=== PATIENT | male | born 1990 | race Caucasian/White ===

== ENCOUNTER 2024-04-29 17:02 | Emergency (ER) | payer OTHER ==
[2024-04-29 19:35] LABS: Absolute Basophils 0.1 K/uL (0-0.5); Absolute Eosinophils 0.2 K/uL (0-0.5); Absolute Monocytes 0.5 K/uL (0.1-1.3); Absolute Neutrophil 6.5 K/uL (1.8-8.0); Eosinophils % 2.6 % (0-4.4); Hematocrit 26.5 % (39.6-49.0); Hemoglobin 7.9 g/dL (13.6-17.9); Lymphocytes % 12.6 % (15.3-44.8); MCH 17.5 pg (27.0-35.0); MCHC 29.8 g/dL (32.0-36.0); MCV 58.8 fL (80-100); MPV 8.4 fL (7.6-11.3); Monocytes % 5.5 % (3.3-12.3); Neutrophils % 78.3 % (41.7-73.7); Nucleated Red Blood Cells % 0.1 % (0-0); Platelets 434 thou/uL (152-406); RBC Red Blood Cell Count 4.51 M/uL (4.33-5.43); Red Cell Distribution Width 18.5 % (12.1-15.2)
[2024-04-29 19:39] LABS: PT Prothrombin Time 12.3 SECONDS (9.4-12.5); PTT, Activated Partial Thromb 34.1 SECONDS (24.3-36.9); Protime INR 1.1
[2024-04-29 20:00] LABS: ALT/SGPT 19 U/L (16-61); Albumin 3.2 g/dL (3.4-5.0); Albumin/Globulin Ratio 0.7 (1.1-1.8); Alkaline Phosphatase 65 U/L (45-117); Anion Gap 10.6 mEq/L (5.0-15.0); BUN Blood Urea Nitrogen 10 mg/dL (7-18); Bicarbonate 26 mEq/L (21-32); Bilirubin Total 0.3 mg/dL (0.2-1.0); Globulin 4.7 g/dL (2.3-3.5); Glomerular Filtration Rate 107 ml/min (=/>90); Glucose Level 154 mg/dL (74-106); Magnesium 2.3 mg/dL (1.6-2.4); Potassium 3.6 mEq/L (3.5-5.1); Protein, Total 7.9 g/dL (6.4-8.2); Sodium Level 137 mEq/L (136-145)
[2024-04-29 20:02] LABS: AST/SGOT < 10 U/L (15-37); Bilirubin Direct < 0.2 mg/dL (0-0.2); Bilirubin Indirect, Calculated 0.1 mg/dL (0.2-0.8)
[2024-04-29 20:06] LABS: Blood Morphology Comment NOTED (NOT SEEN); Hypochromasia 3+; Microcytosis 3+; Platelet Estimate INCR; White Blood Cell Scan OK (OK)
[2024-04-29 20:15] LABS: Ferritin 1.1 ng/mL (26-388); T3 Free 2.36 pg/mL (2.18-3.98); Transferrin 334 mg/dL (200-360)
--- NOTE | 2024-04-29 22:16 | RAD REPORT ---
EXAMINATION: CT ABDOMEN AND PELVIS WITHOUT AND WITH CONTRAST CLINICAL INDICATION: Anemia. Abdominal pain. TECHNIQUE: CT abdomen and pelvis was performed, before and after the administration of IV contrast Is ovue as per department protocol. Axial, sagittal and coronal reconstructions were obtained. One or more of the following dose reduction techniques were used: Automated exposure control, adjustment of the mA and/or kV according to patient size, and/or iterative reconstruction. Unless otherwise specified, incidental findings do not require dedicated imaging follow-up. [id number].. Evaluation of bow el limited secondary to lack of oral contrast administration IV CONTRAST: 100 mL of Isovue-300 ORAL CONTRAST: No. This limits evaluation of bowel. COMPARISON: None FINDINGS: The liver, spleen, pancreas, adrenals and kidneys unremarkable urogram normal appendix. No evidence of diverticulitis Calcified granuloma left lung Mild bladder distention. Small umbilical hernia IMPRESSION: Mild bladder distention
--- NOTE | 2024-04-29 22:37 | EDPHYS ---
Physician Documentation [facility] Name: Parker Rosas Age: 33 yrs Sex: Male : 1990 Arrival Date: 04/29/2024 Time: 17:02 Bed 4 Private MD: ED Physician Fletcher Luque HPI: 04/29 18:55 This 33 yrs old Male presents to ER via Ambulatory with complaints of Abnormal Lab cp Results. 18:55 Patient is a 33-year-old male who presents to the emergency department after reportedly cp being called by his psychiatrist today and being informed that he had a hemoglobin of 7.9 and that he needed to proceed to the emergency department for transfusion. Patient reports the blood work was routine by his psychiatrist as he is trying to go on his prescribed ADHD medication. Patient denies any abdominal pain, denies any chest pain, denies any blood in his stool or black and tarry stools. Patient has any history of being anemic reports that he does suffer from IBS has never had a colonoscopy or any evaluated for this disorder. Historical: - Allergies: 17:33 Iodine; tm6 17:33 SHELLFISH; tm6 - PMHx: 17:33 Depressive disorder; tm6 - PSHx: 17:33 None; tm6 - Immunization history:: Client reports having NOT received the Covid vaccine. - Infectious Disease History:: Denies. - Social history:: Smoking status: Reported history of juuling and/or vaping. Patient uses alcohol, occasionally. ROS: 19:00 Constitutional: Negative for body aches, chills, fever, poor PO intake, cp 19:00 Eyes: Negative for injury, pain, redness, and discharge, cp 19:00 ENT: Negative for drainage from ear(s), ear pain, sore throat, difficulty swallowing, difficulty handling secretions, 19:00 Cardiovascular: Negative for chest pain, edema, palpitations, 19:00 Respiratory: Negative for cough, shortness of breath, wheezing, 19:00 Abdomen/GI: Negative for abdominal pain, nausea, vomiting, and diarrhea, black/tarry stool, rectal bleeding, 19:00 : Negative for urinary symptoms, 19:00 Neuro: Negative for altered mental status, dizziness, headache, syncope, near syncope, weakness, 19:00 All other systems are negative, Exam: 19:05 Constitutional: The patient appears in no acute distress, alert, awake, cp non-diaphoretic, non-toxic, well developed, well nourished, 19:05 Head/Face: Normocephalic, atraumatic. cp 19:05 Eyes: Periorbital structures: appear normal, Conjunctiva: normal, no exudate, no injection, Sclera: no appreciated abnormality, Lids and lashes: appear normal, bilaterally, 19:05 ENT: External ear(s): are unremarkable, Nose: is normal, Mouth: Lips: moist, Oral mucosa: pink and intact, moist, Posterior pharynx: is normal, airway is patent, no erythema, no exudate, 19:05 Chest/axilla: Inspection: normal, 19:05 Cardiovascular: Rate: normal, Rhythm: regular, 19:05 Respiratory: the patient does not display signs of respiratory distress, Respirations: normal, no use of accessory muscles, no retractions, labored breathing, is not present, Breath sounds: are clear throughout, no decreased breath sounds, no stridor, no wheezing, 19:05 Abdomen/GI: Inspection: abdomen appears normal, Palpation: abdomen is soft and non-tender, in all quadrants, 19:05 Neuro: Orientation: to person, place \T\ time. Mentation: is normal, Motor: moves all fours, strength is normal, 19:43 ECG was reviewed by the Attending Physician. cp Vital Signs: 17:32 BP 154 / 86; Pulse 68; Resp 18; Temp 99.2(O); Pulse Ox 99% on R/A; Weight 92.99 kg; tm6 Height 5 ft. 11 in. ; Pain 0/10; 18:42 BP 128 / 82; Pulse 81; Resp 15; Pulse Ox 99% on R/A; ko1 20:14 BP 122 / 71; Pulse 67; Resp 15; Pulse Ox 100% ; Pain 0/10; dd2 21:20 BP 112 / 68; Pulse 55; Resp 16; Pulse Ox 100% ; Pain 0/10; dd2 22:35 BP 115 / 69; Pulse 58; Resp 16; Pulse Ox 99% ; Pain 0/10; dd2 17:32 Body Mass Index 28.59 (92.99 kg, 180.34 cm) tm6 17:32 Pain Scale: Adult tm6 20:14 Pain Scale: Adult dd2 21:20 Pain Scale: Adult dd2 22:35 Pain Scale: Adult dd2 MDM: 17:39 Patient medically screened. 20:00 Differential diagnosis: GI bleed, chronic anemia, iron deficiency anemia, thalassemia. cp 22:35 Data reviewed: vital signs, nurses notes, lab test result(s), EKG, radiologic studies, cp CT scan, and as a result, I will discharge patient. 22:35 Independent interpretation of the following test(s) in the Emergency Department EKG: cp See my EKG interpretation above. Counseling: I had a detailed discussion with the patient and/or guardian regarding the historical points, exam findings, and any diagnostic results supporting the discharge/admit diagnosis, lab results, radiology results, the need for outpatient follow up, a twisthand, to return to the emergency department if symptoms worsen or persist or if there are any questions or concerns that arise at home. 04/29 18:51 Order name: Basic Metabolic Panel; Complete Time: 20:21 04/29 20:21 Interpretation: Normal except: GLUC 154. 04/29 18:51 Order name: CBC with Diff; Complete Time: 20:21 04/29 20:22 Interpretation: Normal except: HGB 7.9; HCT 26.5; MCV 58.8; MCHC 29.8; MCH 17.5; PLT cp 434; RDW 18.5; DIANA% 78.3; LYM% 12.6. 04/29 18:51 Order name: LFT's; Complete Time: 20:21 04/29 22:32 Interpretation: AST < 10; IBILI, CALC 0.1; ALB 3.2; GLOB 4.7; A/G 0.7; Reviewed. 04/29 18:51 Order name: Magnesium; Complete Time: 20:21 04/29 22:32 Interpretation: Reviewed. 04/29 18:51 Order name: PT-INR; Complete Time: 20:21 04/29 18:51 Order name: Ptt, Activated; Complete Time: 20:21 04/29 18:51 Order name: Ferritin; Complete Time: 20:21 04/29 22:32 Interpretation: Abnormal: DORIAN 1.1. 04/29 18:51 Order name: TIBC; Complete Time: 20:21 04/29 22:32 Interpretation: Normal except: IRON 11.0; IBCT 468; %SAT 2.4. cp 04/29 18:51 Order name: TSH; Complete Time: 20:21 cp 04/29 18:51 Order name: T3 Free; Complete Time: 20:21 cp 04/29 20:06 Order name: CBC Smear Scan; Complete Time: 20:21 EDMS 04/29 20:56 Order name: CT Abd/Pelvis- W/WO Contrast; Complete Time: 22:31 cp 04/29 18:51 Order name: Cardiac monitoring; Complete Time: 19:41 cp 18 18:51 Order name: EKG - Nurse/Tech; Complete Time: 19:41 cp 04/29 18:51 Order name: IV Saline Lock; Complete Time: 19:41 cp 04/29 18:51 Order name: Labs collected and sent; Complete Time: 19:41 cp 04/29 18:51 Order name: O2 Per Protocol; Complete Time: 19:15 cp 04/29 18:51 Order name: O2 Sat Monitoring; Complete Time: 19:15 cp EC:43 Rate is 70 beats/min. Rhythm is regular. NE interval is normal. QRS interval is normal. cp QT interval is normal. T waves are Inverted in lead aVR. Interpreted by me. Reviewed by me. Administered Medications: No medications were administered Disposition Summary: 04/29/24 22:36 Discharge Ordered Notes: Location: Home cp Problem: new cp Symptoms: have improved cp Condition: Stable cp Diagnosis - Iron deficiency anemia, unspecified cp Followup: cp - With: Leonard Lomas MD - When: 2 - 3 days - Reason: Recheck today's complaints Discharge Instructions: - Discharge Summary Sheet cp - Iron Deficiency Anemia, Adult cp - Anemia cp - Iron-Rich Diet cp Forms: - Medication Reconciliation Form cp - Antibiotic Education cp - Prescription Opioid Use cp - Patient Portal Instructions cp - Leadership Thank You Letter cp Prescriptions: - Ferrous Sulfate 325 mg (65 mg Iron) Oral tablet - take 1 tablet ORAL route every 12 hours; 60 tablet; Refills: 0, Product cp Selection Permitted Signatures: Dispatcher [employer] EDMS Fletcher Hall PA PA cp Masterson, Tawney RN RN tm6 Corrections: (The following items were deleted from the chart) 17:34 17:33 PMHx: None; tm6 tm6 20:56 20:56 Abdomen Pelvis W/Wo Con+CT.RAD.BRZ ordered. EDMS EDMS
--- NOTE | 2024-04-29 22:37 | ER ---
Nurse's Notes [facility] Name: Parker Rosas Age: 33 yrs Sex: Male : 1990 Arrival Date: 04/29/2024 Time: 17:02 Bed 4 Private MD: Diagnosis: Iron deficiency anemia, unspecified Presentation: 04/29 17:32 Chief complaint: Patient states: got a call from my doctor today telling me my tm6 hemoglobin is 7.9 and should go to the ER for a blood transfusion. Coronavirus screen: Vaccine status: Patient reports being unvaccinated. Ebola Screen: Patient negative for fever greater than or equal to 101.5 degrees Fahrenheit, and additional compatible Ebola Virus Disease symptoms Patient denies exposure to infectious person. Patient denies travel to an Ebola-affected area in the 21 days before illness onset. No symptoms or risks identified at this time. Initial Sepsis Screen: Does the patient meet any 2 criteria? No. Patient's initial sepsis screen is negative. Does the patient have a suspected source of infection? No. Patient's initial sepsis screen is negative. Risk Assessment: Do you want to hurt yourself or someone else? Patient reports no desire to harm self or others. Onset of symptoms was April 29, 2024. 17:32 Method Of Arrival: Ambulatory tm6 17:32 Acuity: TONO 3 tm6 Triage Assessment: 17:33 General: Appears in no apparent distress. Behavior is calm, cooperative. Pain: Denies tm6 pain. EENT: No signs and/or symptoms were reported regarding the EENT system. Neuro: Level of Consciousness is awake, alert, obeys commands, Oriented to person, place, time, situation. Cardiovascular: Capillary refill < 3 seconds Patient's skin is warm and dry. Respiratory: Airway is patent Respiratory effort is even, unlabored, Respiratory pattern is regular, symmetrical. GI: No signs and/or symptoms were reported involving the gastrointestinal system. Abdomen is flat, non-distended. : No signs and/or symptoms were reported regarding the genitourinary system. Derm: No signs and/or symptoms reported regarding the dermatologic system. Musculoskeletal: No signs and/or symptoms reported regarding the musculoskeletal system. Historical: - Allergies: 17:33 Iodine; tm6 17:33 SHELLFISH; tm6 - PMHx: 17:33 Depressive disorder; tm6 - PSHx: 17:33 None; tm6 - Immunization history:: Client reports having NOT received the Covid vaccine. - Infectious Disease History:: Denies. - Social history:: Smoking status: Reported history of juuling and/or vaping. Patient uses alcohol, occasionally. Screenin:42 [facility] ED Fall Risk Assessment (Adult) History of falling in the last 3 months, ko1 including since admission No falls in past 3 months (0 pts) Confusion or Disorientation No (0 pts) Intoxicated or Sedated No (0 pts) Impaired Gait No (0 pts) Mobility Assist Device Used No (0 pt) Altered Elimination No (0 pt) Score/Fall Risk Level 0 - 2 = Low Risk Oriented to surroundings, Maintained a safe environment, Educated pt \T\ family on fall prevention, incl call for assistance when getting out of bed, Assessed \T\ reinforced patient's understanding of fall precautions, Hourly rounding (assess needs \T\ fall precautionary measures) done. Abuse screen: Denies threats or abuse. Denies injuries from another. Nutritional screening: No deficits noted. Tuberculosis screening: No symptoms or risk factors identified. Assessment: 18:42 General: Appears in no apparent distress. Behavior is calm, cooperative, appropriate ko1 for age. Pain: Denies pain. Neuro: No deficits noted. Cardiovascular: No deficits noted. Respiratory: No deficits noted. GI: No deficits noted. : No deficits noted. EENT: No deficits noted. Derm: No deficits noted. Musculoskeletal: No deficits noted. 19:41 Reassessment: No changes from previously documented assessment. Patient denies pain at dd2 this time. Vital Signs: 17:32 BP 154 / 86; Pulse 68; Resp 18; Temp 99.2(O); Pulse Ox 99% on R/A; Weight 92.99 kg; tm6 Height 5 ft. 11 in. ; Pain 0/10; 18:42 BP 128 / 82; Pulse 81; Resp 15; Pulse Ox 99% on R/A; ko1 20:14 BP 122 / 71; Pulse 67; Resp 15; Pulse Ox 100% ; Pain 0/10; dd2 21:20 BP 112 / 68; Pulse 55; Resp 16; Pulse Ox 100% ; Pain 0/10; dd2 22:35 BP 115 / 69; Pulse 58; Resp 16; Pulse Ox 99% ; Pain 0/10; dd2 17:32 Body Mass Index 28.59 (92.99 kg, 180.34 cm) tm6 17:32 Pain Scale: Adult tm6 20:14 Pain Scale: Adult dd2 21:20 Pain Scale: Adult dd2 22:35 Pain Scale: Adult dd2 ED Course: 17:07 Patient arrived in ED. mg5 17:33 Triage completed. tm6 17:33 Arm band placed on right wrist. tm6 17:38 Fletcher Hall PA is PHCP. cp 17:38 Fletcher Luque MD is Attending Physician. cp 18:27 Geeta Martinez, YELENA is Primary Nurse. kc6 18:42 Patient has correct armband on for positive identification. Allergy band placed. Bed in ko1 low position. Call light in reach. Provided Education on: labs. Pulse ox on. NIBP on. Door closed. Noise minimized. Lights dimmed. Warm blanket given. Pillow given. 19:40 T3 Free Sent. dd2 19:41 TSH Sent. dd2 19:41 TIBC Sent. dd2 19:41 Ferritin Sent. dd2 19:41 Basic Metabolic Panel Sent. dd2 19:41 CBC with Diff Sent. dd2 19:41 LFT's Sent. dd2 19:41 Magnesium Sent. dd2 19:41 No provider procedures requiring assistance completed. Initial lab(s) drawn, by me, dd2 sent to lab. EKG done, by ED staff, reviewed by Fletcher ZHOU. Inserted saline lock: 20 gauge in right antecubital area, using aseptic technique. Blood collected. Flushed with 10 mL NS. 21:44 CT Abd/Pelvis- W/WO Contrast In Process Unspecified. EDMS 22:35 Leonard Lomas MD is Referral Physician. cp 22:43 IV discontinued, intact, bleeding controlled, No redness/swelling at site. Pressure dd2 dressing applied. Administered Medications: No medications were administered Medication: 18:42 VIS not applicable for this client. ko1 Outcome: 22:36 Discharge ordered by . cp 22:43 Discharged to home ambulatory, dd2 22:43 Condition: stable 22:43 Discharge instructions given to patient, Instructed on discharge instructions, follow up and referral plans. medication usage, Demonstrated understanding of instructions, follow-up care, medications, Prescriptions given X 1, 22:44 Patient left the ED. dd2 Signatures: Dispatcher [employer] EDMS Fletcher Hall PA PA cp Campbell, Kaitlyn RN RN kc6 Vickie Hardin RN RN ko1 Mary Finley mg5 Veronica Fortune RN RN tm6 DINORA MATHEWS RN RN dd2 Corrections: (The following items were deleted from the chart) 17:34 17:33 PMHx: None; tm6 tm6
[2024-04-29 22:52] VITALS: TEMP 99.2
[2024-04-29 22:54] VITALS: O2SAT 100
[2024-04-29 22:56] VITALS: BP 112/68
--- NOTE | 2024-04-30 12:16 | EKG ---
Test Date: 2024-04-29 Test Time: 19:37:05 Ginner Helper: VALENTIN MEASUREMENT RESULTS: Intervals: Rate: 70 ME: 148 QRSD: 92 QT: 394 QTc: 425 [place]: P: 42 ME: 148 QRS: 12 T: 19 INTERPRETIVE STATEMENTS: Normal sinus rhythm Nonspecific T wave abnormality Abnormal ECG No previous ECG available for comparison Electronically Signed On 04-30-24 12:14:54 CDT by Laurent Hudson
== END 2024-04-29 22:44 | disposition home or self-care (01) ==
LOC: ER 17:02
DX: D50.9 Iron deficiency anemia, unspecified (principal); Z28.310 Unvaccinated for COVID-19
CPT/HCPCS: 85025; 80048; 36415; 83735; 85610; 80076; 85730; 84443; 84481; 82728; 83540; 84466; 74178; Q9967; 93005